=== PATIENT | female | born 1970 | race Two or more races ===

== ENCOUNTER → 2025-08-17 | Outpatient (CLI) | payer OTHER, SELFPAY ==
--- NOTE | 2025-08-17 09:15 | XR_ITS ---
Examination: Left elbow without contrast Date and time of exam: August 17, 2025, 1032 hours INDICATIONS: Injury to the shoulder and elbow this week, shoulder pain Technique: Multiple MRI axial and sagittal sections left elbow Sagittal T2-weighted images, TR 3500, TE 118 T1 weighted transverse sections, TR 688 T8.5, T2-weighted sagittal sections T1 weighted sagittal sections TR 621, TE 30 T2 axial sections, TR 4, 190, TE 84. Findings: Homogeneous marrow signal distal humerus radial head radial neck and proximal ulna No ossified joint bodies Triceps tendon intact Medial and lateral elbow ligamentous complex is intact no strain or tear Small knee effusion Intact long head of the biceps inserting into the radial tuberosity IMPRESSION: No bone contusion marrow edema or occult fracture Medial and lateral ligamentous complexes are intact Intact long head of the biceps or inserting into the radial tuberosity
--- NOTE | 2025-08-17 10:00 | XR_ITS ---
Examination: MRI left wrist without contrast Date and time of exam: August 17, 2025, 1114 hours INDICATIONS: Injury to the wrist this week, wrist pain Technique: Multiple MRI axial and sagittal sections left wrist. Sagittal T2-weighted images, TR 3500, TE 118 T1 weighted transverse sections, TR 688 T8.5, T2-weighted sagittal sections T1 weighted sagittal sections TR 621, TE 30 T2 axial sections, TR 4, 190, TE 84. Findings: All of the images are severely degraded by magnetic susceptibility artifact, presumably orthopedic hardware in the distal radius Flexor tendons appear grossly intact IMPRESSION: All of the images are severely degraded by magnetic susceptibility artifact, consider CT scan wrist without contrast follow-up
--- NOTE | 2025-08-17 13:00 | XR_ITS ---
MRI shoulder, left, without contrast. Date and time: August 17, 2025, 1432 hours INDICATIONS: Injury to the shoulder this week with shoulder pain Technique: Multiple axial, sagittal and coronal sections of the shoulder have been obtained. Siemens high-resolution 1.5 [employer] MRI scanner is utilized. Axial fat-suppressed sections, TR 2350, TE 18 T2-weighted coronal fat-saturated images, TR 3500, TE 7100 T1-weighted coronal images, TR 500, TE 15 T2-weighted sagittal fat-saturated images, TR 3500, TE 57 T1-weighted sagittal sections, TR 504, TE 13. Findings: Supraspinatus tendon insertion is abnormal, 12 mm partial-thickness articular surface tear. Infraspinatus tendon insertion is intact. Subscapularis insertion is intact. Subscapularis bursa is not seen. Long head of the biceps is in the bicipital groove. No definite tear of the biceps superior labral anchor is seen. Retraction of the musculotendinous junction of the rotator cuff is not seen . Tendinosis pattern is moderate. Distance between the acromium and humeral head is 4.4 mm Atrophy of the supraspinatus muscle is severe. Atrophy of the infraspinatus muscle is moderate. Sagittal sections demonstrate a horizontal acromion. Acromioclavicular joint demonstrates mild osteoarthritis . Osacromiale is not identified. Anterior superior labral tears. Bony glenoid fossa on the sagittal sections does not demonstrate osseous defect. Occult fracture or area of avascular necrosis is not seen. Acromioclavicular joint separation is not visible. Defect in the posterolateral margin of the humeral head is not seen Impression: 12 mm partial-thickness articular surface tear supraspinatus Anterior superior labral tears
== END | disposition home or self-care (01) ==
PROVIDERS: PCP Nurse Practitioner Family; Referring Provider Nurse Practitioner Family; Visit Provider Nurse Practitioner Family
DX: S49.92XA Unspecified injury of left shoulder and upper arm, initial encounter (principal); S69.92XA Unspecified injury of left wrist, hand and finger(s), initial encounter; S46.012A Strain of muscle(s) and tendon(s) of the rotator cuff of left shoulder, initial encounter; S43.432A Superior glenoid labrum lesion of left shoulder, initial encounter; X58.XXXA Exposure to other specified factors, initial encounter
CPT/HCPCS: 73221